=== PATIENT | female | born 1955 | race Caucasian/White ===

== ENCOUNTER 2016-06-13 17:56 | Outpatient (CLI) | payer OTHER | END 2016-06-13 17:57 | disposition home or self-care (01) | DX: S89.92XA Unspecified injury of left lower leg, initial encounter (principal); Z96.652 Presence of left artificial knee joint; M19.041 Primary osteoarthritis, right hand; M50.321 Other cervical disc degeneration at C4-C5 level; M47.812 Spondylosis without myelopathy or radiculopathy, cervical region; S09.93XA Unspecified injury of face, initial encounter ==

== ENCOUNTER 2017-03-06 08:00 | Outpatient (CLI) | payer OTHER ==
[2017-03-06 18:02] LABS: EOSINOPHILS # (AUTO) 0.1 10^3/uL (0.0-0.7); HCT - HEMATOCRIT 39.8 % (37.0-47.0); HGB - HEMOGLOBIN 13.1 g/dL (12.0-16.0); LYMPHOCYTES # (AUTO) 1.3 10^3/uL (1.5-3.5); LYMPHOCYTES % (AUTO) 28.4 %; MEAN CORPUSCULAR HEMOGLOBIN 29.6 pg (27.0-31.0); MEAN CORPUSCULAR HGB CONC 32.9 g/dL (32.0-36.0); MEAN PLATELET VOLUME 8.9 fL (7.9-10.8); MONOCYTES # (AUTO) 0.5 10^3/uL (0.0-1.0); MONOCYTES % (AUTO) 10.6 %; NEUTROPHILS # (AUTO) 2.6 10^3/uL (1.5-6.6); RED BLOOD COUNT 4.42 10^6/uL (4.20-5.40); RED CELL DISTRIBUTION WIDTH 13.2 % (12.0-15.0); UNCORRECTED WHITE BLOOD COUNT 4.6 x10^3/uL; WHITE BLOOD COUNT 4.6 x10^3/uL (4.8-10.8)
[2017-03-08 19:16] LABS: ANA SCREEN POSITIVE (NEGATIVE)
== END 2017-03-06 08:01 | disposition home or self-care (01) ==
LOC: LAB.F 08:00
PROVIDERS: ATTEND Naturopath
DX: M25.50 Pain in unspecified joint (principal); R60.0 Localized edema; R53.83 Other fatigue; Z13.6 Encounter for screening for cardiovascular disorders
CPT/HCPCS: 36415; 85025; 85651; 86038; 86141; 86430

== ENCOUNTER 2017-03-26 09:40 | Outpatient (CLI) | payer OTHER ==
--- NOTE | 2017-03-26 11:49 | XRAY Report ---
THREE VIEW RIGHT KNEE: 03/26/2017 CLINICAL INDICATION: Pain. FINDINGS: AP, lateral, and sunrise views of the right knee demonstrate moderate osteoarthritis. Ther e is no evidence of acute fracture. A small joint effusion is present. No radiopaque foreign body is seen in the soft tissues. IMPRESSION: MODERATE OSTEOARTHRITIS, WITH A SMALL JOINT EFFUSION. JOB #: [id number] EXT JOB #:[id number]
== END 2017-03-26 09:41 | disposition home or self-care (01) ==
LOC: DI.S 09:40
PROVIDERS: ATTEND Nurse Practitioner Family
DX: M17.11 Unilateral primary osteoarthritis, right knee (principal)

== ENCOUNTER 2019-08-07 18:17 | Outpatient (CLI) | payer BC, OTHER | END 2019-08-07 18:18 | disposition home or self-care (01) | LOC: COV 18:17 | PROVIDERS: ATTEND Family Medicine | DX: R05 Cough (principal) ==

== ENCOUNTER 2020-12-19 12:37 | Outpatient (CLI) | payer MEDICARE, BC ==
--- NOTE | 2020-12-22 14:39 | Mammography Report ---
BILATERAL DIGITAL SCREENING MAMMOGRAM 3D/2D: 12/19/2020 CLINICAL: Routine screening. Comparison is made to exams dated: 01/18/2016 mammogram, 12/11/2014 mammogram, 05/15/2012 mammogram, and 01/25/2011 mammogram - [facility]. There are scattered fibroglandular elements in b oth breasts. No significant masses, calcifications, or other findings are seen in either breast. There has been no significant interval change. IMPRESSION: NEGATIVE There is no mammographic evidence of malignancy. A 1 year screening mammogram is recommended. This exam was interpreted at Station ID: [id number]. NOTE: For mammograms, a report in lay terms will be sent to the patient. Approximately 15% of breast malignancies will not be visualized mammographically. In the management of a palpable breast mass, a negative mammogram must not discourage biopsy of a clinically suspicious lesion. Electronically Signed By: Kris Wilhelm M.D. slc/penrad:12/21/2020 11:45:29 ACR BI-RADS Category 1: Negative 3341F PARENCHYMAL PATTERN: (A) - The breast(s) demonstrate(s) scattered fibroglandular densities. BI-RADS CATEGORY: (1) - 1 RECOMMENDATION: (ANNUAL) - Recommend routine annual screening mammography. [id number] 1 year screening LATERALITY: (B)
== END 2020-12-19 12:38 | disposition home or self-care (01) ==
LOC: DI.S 12:37
PROVIDERS: ATTEND Physician Assistant
DX: Z12.31 Encounter for screening mammogram for malignant neoplasm of breast (principal)

== ENCOUNTER 2021-05-26 12:01 | Outpatient (CLI) | payer MEDICARE, BC ==
--- NOTE | 2021-05-26 16:52 | CT Report ---
PROCEDURE: CHEST WO INDICATIONS: SOLITARY LUNG NODULE TECHNIQUE: Noncontrast 1mm axial images were acquired from the pulmonary apices to the posterior costophrenic an gles. Axial 5 mm soft tissue kernel reconstructions were performed as well as 8 mm axial MIP and cor onal and sagittal 5 mm reformations. For radiation dose reduction, the following was used: automate d exposure control, adjustment of mA and/or kV according to patient size. COMPARISON: None FINDINGS: Image quality: Excellent. Lungs and pleura: No acute air space opacities. Calcified nodule within the left posterior lung bas e. Scarring within the right lower lobe medially. 7 mm diameter nodular thickening of the posterior a spect of the minor fissure. Calcified granuloma within the right lower lobe posteriorly. No pleural e ffusions or pneumothorax. Central and peripheral airways are patent and normal in caliber. Mediastinum: Heart size is normal. No pericardial effusion. No mediastinal adenopathy by size crit eria. Calcified left hilar lymph nodes are present. Thoracic aorta and central pulmonary arteries are normal in size. Esophagus is normal in caliber. Small hiatal hernia. Bones and chest wall: No suspicious bony lesions. No vertebral body compression fractures. No axil brenda or supraclavicular adenopathy by size criteria. The thyroid is normal in size and there are no incidental findings. Abdomen: Visualized upper abdominal solid organs and bowel loops appear normal in the absence of con trast. IMPRESSION: 1. Remote granulomatous disease. 2. Small hiatal hernia. 3. Right pleural nodule. Follow-up is recommended as below. Solid nodules Solitary nodule size: <6 mm low risk patients: no follow-up needed high risk patients: optional CT at 12 months Solitary nodule size: 6-8 mm low risk patients: follow-up at 6-12 months, then consider further follow-up at 18-24 months high risk patients: initial follow-up CT at 6-12 months and then at 18-24 months if no change Reviewed by: Adam Cheung MD on 05/26/2021 4:51 PM PST Approved by: Adam Cheung MD on 05/26/2021 4:51 PM PST Station ID: [id number]
== END 2021-05-26 12:02 | disposition home or self-care (01) ==
LOC: DI 12:01
PROVIDERS: ATTEND Physician Assistant
DX: R91.1 Solitary pulmonary nodule (principal); K44.9 Diaphragmatic hernia without obstruction or gangrene

== ENCOUNTER 2021-05-27 17:40 | Outpatient (CLI) | payer MEDICARE, BC ==
--- NOTE | 2021-05-27 18:32 | XRAY Report ---
PROCEDURE: Knee 3 View LT INDICATIONS: LEFT KNEE PAIN TECHNIQUE: 3 views of the none knee(s) were acquired. COMPARISON: None. FINDINGS: Bones: Expected appearance of total knee arthroplasty. No evidence of hardware failure or loosening. No fractures or dislocations. No suspicious bony lesions. Soft tissues: No joint effusion. No suspicious soft tissue calcifications. IMPRESSION: Expected appearance of total left knee arthroplasty. Reviewed by: Jose Jalloh MD on 05/27/2021 6:31 PM PST Approved by: Jose Jalloh MD on 05/27/2021 6:31 PM PST Station ID: [id number]
== END 2021-05-27 17:41 | disposition home or self-care (01) ==
LOC: DI 17:40
PROVIDERS: ATTEND Registered Nurse
DX: M25.562 Pain in left knee (principal); Z96.652 Presence of left artificial knee joint

== ENCOUNTER 2021-06-22 11:51 | Outpatient (CLI) | payer MEDICARE, BC | END 2021-06-22 11:52 | disposition home or self-care (01) | LOC: LAB.S 11:51 | PROVIDERS: ATTEND Surgery | DX: Z01.812 Encounter for preprocedural laboratory examination (principal); Z86.010 Personal history of colon polyps; G47.33 Obstructive sleep apnea (adult) (pediatric); Z20.822 Contact with and (suspected) exposure to COVID-19 ==

== ENCOUNTER 2021-06-23 08:57 | Day surgery (SDC) | payer MEDICARE, BC ==
[2021-06-23] MEDS ORDERED: LACTATED RINGERS 1,000 ML IV ONE ×2 (09:17→11:01)
--- NOTE | 2021-06-23 09:24 | ANESTHESIA ---
Pre-Anesthesia VS, & Labs - Diagnosis hx colon polyps - Procedure colonoscopy Vital Signs: Temp Pulse Resp BP Pulse Ox 37.1 C 60 12 160/78 H 100 06/23/21 09:15 06/23/21 09:15 06/23/21 09:15 06/23/21 09:15 06/23/21 09:15 Height: 5 ft 8 in Weight (kg): 99 kg Body Mass Index: 33.2 BMI Classification: Obese - NPO >8 hours Last Fluid Intake: am prep - Is Patient ?: No - Lab Results Lab results reviewed: Yes Home Medications and Allergies Home Medications: Ambulatory Orders Naltrexone HCl 30 mg PO DAILY 06/22/21 Naltrexone HCl 30 mg PO DAILY 06/22/21 Allergies/Adverse Reactions: Allergies Allergy/AdvReac Type Severity Reaction Status Date / Time Penicillins Allergy Hives Verified 05/19/15 09:24 Sulfa (Sulfonamide Allergy Hives Verified 05/19/15 09:24 Antibiotics) Anes History & Medical History - Anesthetic History Anesthesia Complications: reports: No previous complications Family history of Anesthesia Complications: Denies Family history of Malignant Hyperthermia: Denies - Medical History Cardiovascular: reports: Atrial fibrillation Pulmonary: reports: None Gastrointestinal: reports: None Urinary: reports: None Musculoskeletal: reports: Osteoarthritis Endocrine/Autoimmune: reports: None Skin: reports: None History of Cancer?: No - Surgical History General: reports: Colonoscopy Eyes Ears Nose Throat (EENT): reports: Tonsil/Adenoidectomy Cardiothoracic: reports: Other Orthopedic: reports: Knee replacement Exam General: Alert, Oriented x3, Cooperative Dental: WNL Mouth Openin Fingerbreadth Neck Mobility: Normal Mallampati classification: II Thyromental Distance: 4-6 cm Respiratory: Lungs clear, Normal breath sounds, No respiratory distress Cardiovascular: Regular rate (hx of afib ablation) Neurological: Normal speech Mental/Cognitive Status: Alert/Oriented X3, Normal for patient Cognitive Status: Within normal limits Plan Anesthesia Type: Total IV Consent for Procedure(s) Verified and Reviewed: Yes Code Status: Attempt Resuscitation ASA classification: 2-Mild systemic disease Is this case an emergency?: No
[2021-06-23] MEDS ORDERED: PROPOFOL 500 MG/50 ML 500 MG/50 ML VIAL ONE (09:49)
[2021-06-23] MEDS ORDERED: fentaNYL 100 MCG/2 ML VIAL ONE (09:49)
[2021-06-23] MEDS ORDERED: MIDAZOLAM 2 MG/2 ML VIAL ONE (09:49)
[2021-06-23 11:17] VITALS: BP 117/62
--- NOTE | 2021-06-23 13:10 | ANESTHESIA POST OP EVALUATION ---
Anesthesia Post Eval - Post Anesthesia Eval Vitals: Last Vital Signs Temp 37.1 C 06/23/21 11:03 Pulse 48 L 06/23/21 11:16 Resp 14 06/23/21 11:16 BP 117/62 06/23/21 11:16 Pulse Ox 100 06/23/21 11:16 CV Function Including HR & BP: Stable Pain Control: Satisfactory Nausea & Vomiting: Negative Mental Status: Baseline Respiratory Status: Airway Patent Hydration Status: Satisfactory Anesthesia Complications: None
== END 2021-06-23 08:58 | disposition home or self-care (01) ==
LOC: SDS 08:57
PROVIDERS: ATTEND Surgery
DX: Z12.11 Encounter for screening for malignant neoplasm of colon (principal); K57.30 Diverticulosis of large intestine without perforation or abscess without bleeding; G47.33 Obstructive sleep apnea (adult) (pediatric); E66.9 Obesity, unspecified; Z68.33 Body mass index [BMI] 33.0-33.9, adult; Z86.010 Personal history of colon polyps
CPT/HCPCS: G0105; J7120

== ENCOUNTER 2022-08-09 10:09 | Outpatient (CLI) | payer BC, MEDICARE ==
--- NOTE | 2022-08-10 10:41 | Mammography Report ---
BILATERAL DIGITAL SCREENING MAMMOGRAM 3D/2D: 08/09/2022 CLINICAL: Routine screening. Comparison is made to exams dated: 12/19/2020 mammogram - [facility], 03/17/2019 mamm ogram - [facility], and 01/18/2016 mammogram - [facility]. There are scattered areas of fibroglandular density in both breasts (category b / 25%-50% glandular t issue). No significant masses, calcifications, or other findings are seen in either breast. There has been no significant interval change. IMPRESSION: NEGATIVE There is no mammographic evidence of malignancy. A 1 year screening mammogram is recommended. Based on the Tyrer Cuzick model (a risk assessment model) the patients lifetime risk is 6.2% and her 10 year risk is 3.1%. According to the ACR, ACS, and NCCN guidelines, an annual breast MRI exam trisha g with mammogram is recommended if the patients lifetime risk is 20% or greater. This exam was interpreted at Station ID: [id number]. NOTE: For mammograms, a report in lay terms will be sent to the patient. Approximately 15% of breast malignancies will not be visualized mammographically. In the management of a palpable breast mass, a negative mammogram must not discourage biopsy of a clinically suspicious lesion. Electronically Signed By: Kris harris/alexei:08/09/2022 14:50:42 letter sent: No_Letter ACR BI-RADS Category 1: Negative 3341F PARENCHYMAL PATTERN: (A) - The breast(s) demonstrate(s) scattered fibroglandular densities. BI-RADS CATEGORY: (1) - 1 Mammogram [id number] 1 year screening LATERALITY: (B)
== END 2022-08-09 10:10 | disposition home or self-care (01) ==
LOC: DI.S 10:09
PROVIDERS: ATTEND Registered Nurse
DX: Z12.31 Encounter for screening mammogram for malignant neoplasm of breast (principal)

== ENCOUNTER 2022-11-07 11:36 | Outpatient (CLI) | payer MEDICARE, OTHER ==
--- NOTE | 2022-11-07 16:01 | XRAY Report ---
PROCEDURE: Chest 2 View X-Ray INDICATIONS: UPPER RESPIRATORY INFECTION TECHNIQUE: 2 views of the chest were acquired. COMPARISON: None. FINDINGS: Surgical changes and devices: None. Lungs and pleura: No pleural effusions or pneumothorax. Lungs are clear. Mediastinum: Mediastinal contours appear normal. Heart size is normal. Bones and chest wall: No suspicious bony lesions. Overlying soft tissues appear unremarkable. IMPRESSION: No acute cardiopulmonary process. Reviewed by: Teresa Wolf MD, PhD on 11/07/2022 3:59 PM PDT Approved by: Teresa Wolf MD, PhD on 11/07/2022 3:59 PM PDT Station ID: [id number]
== END 2022-11-07 11:37 | disposition home or self-care (01) ==
LOC: DI.S 11:36
PROVIDERS: ADMIT Orthopaedic Surgery; ATTEND Obstetrics & Gynecology
DX: J06.9 Acute upper respiratory infection, unspecified (principal)

== ENCOUNTER 2023-10-02 13:10 | Outpatient (CLI) | payer MEDICARE ==
--- NOTE | 2023-10-03 09:14 | Mammography Report ---
BILATERAL DIGITAL SCREENING MAMMOGRAM 3D/2D: 10/02/2023 CLINICAL: Routine screening. Comparison is made to exams dated: 08/09/2022 mammogram, 12/19/2020 mammogram - [facility], and 03/17/2019 mammogram - [facility]. There are scattered areas of fibroglandular density in both breasts (category b / 25%-50% glandular t issue). No significant masses, calcifications, or other findings are seen in either breast. There has been no significant interval change. IMPRESSION: NEGATIVE There is no mammographic evidence of malignancy. A 1 year screening mammogram is recommended. Based on the Tyrer Cuzick model (a risk assessment model) the patient's lifetime risk is 5.9% and her 10 year risk is 3.1%. According to the ACR, ACS, and NCCN guidelines, an annual breast MRI exam trisha g with mammogram is recommended if the patient's lifetime risk is 20% or greater. This exam was interpreted at Station ID: [id number]. NOTE: For mammograms, a report in lay terms will be sent to the patient. Approximately 15% of breast malignancies will not be visualized mammographically. In the management of a palpable breast mass, a negative mammogram must not discourage biopsy of a clinically suspicious lesion. Electronically Signed By: Cullen rodrigues/[email or web address]:10/02/2023 16:23:30 letter sent: No_Letter ACR BI-RADS Category 1: Negative 3341F PARENCHYMAL PATTERN: (A) - The breast(s) demonstrate(s) scattered fibroglandular densities. BI-RADS CATEGORY: (1) - 1 RECOMMENDATION: (ANNUAL) - Recommend routine annual screening mammography. [id number] 1 year screening LATERALITY: (B)
== END 2023-10-02 13:11 | disposition home or self-care (01) ==
LOC: DI 13:10
PROVIDERS: ATTEND Registered Nurse
DX: Z12.31 Encounter for screening mammogram for malignant neoplasm of breast (principal); R92.323 Mammographic fibroglandular density, bilateral breasts

== ENCOUNTER 2023-10-02 13:12 | Outpatient (CLI) | payer MEDICARE ==
--- NOTE | 2023-10-02 16:09 | XRAY Report ---
PROCEDURE: Sacrum/Coccyx INDICATIONS: PAIN IN COCCYX TECHNIQUE: 2 views of the sacrum and coccyx acquired. COMPARISON: None. FINDINGS: Bones: No fractures or dislocations. No suspicious bony lesions. Degenerative changes are present within the visualized lower lumbar spine, including disc and foraminal narrowing. Soft tissues: Visualized bowel gas pattern is normal. No suspicious soft tissue densities. IMPRESSION: No visualized acute fracture or dislocation. However, occult injury cannot be excluded. Recommend micky rt interval imaging follow-up in 7-10 days as clinically indicated for additional evaluation. Reviewed by: Darby Arevalo MD on 10/02/2023 4:08 PM PDT Approved by: Darby Arevalo MD on 10/02/2023 4:08 PM PDT Station ID: [id number]
--- NOTE | 2023-10-02 16:59 | CT Report ---
PROCEDURE: Chest WO INDICATIONS: MULTIPLE LUNG NODULES TECHNIQUE: A CT scan of the chest was performed. Intravenous contrast media was not administered. Images were re corded and evaluated at appropriate window settings. Reformats: axial MIP of the chest, coronal and s agittal. For radiation dose reduction, the following was used: automated exposure control, adjustment of mA and/or kV according to patient size. COMPARISON: CT 12/13/2021 FINDINGS: Image quality: Diagnostic. Chest wall and lower neck: No thyroid nodule which requires sonographic follow up. No axillary or sup raclavicular adenopathy by size. Lungs and pleura: No consolidation. No pleural effusions. No pneumothorax. Calcified granuloma of th e left lower lobe. Stable juxtapleural nodule along the right major fissure, most consistent with a b enign intrapulmonary lymph node given location, stability and shape. No suspicious or growing pulmon arlene nodules. Mediastinum: Heart size is enlarged. No pericardial effusion. No large vessel abnormality. No mediast inal adenopathy by size criteria. Small hiatal hernia. Bones: No aggressive osseous abnormality. Upper Abdomen: Separately dictated. IMPRESSION: Stable juxtapleural nodule associated with the right major fissure. Location, stability and shape fav ors a benign intrapulmonary lymph node. No suspicious pulmonary nodules are identified. Reviewed by: Surendra Terrazas MD on 10/02/2023 4:57 PM PDT Approved by: Surendra Terrazas MD on 10/02/2023 4:57 PM PDT Station ID: [id number]
== END 2023-10-02 13:13 | disposition home or self-care (01) ==
LOC: DI 13:12
PROVIDERS: ATTEND Registered Nurse
DX: M47.816 Spondylosis without myelopathy or radiculopathy, lumbar region (principal); M53.3 Sacrococcygeal disorders, not elsewhere classified; R91.8 Other nonspecific abnormal finding of lung field